=== PATIENT | female | born 1985 | race Caucasian/White ===

== ENCOUNTER 2021-09-15 15:27 | Outpatient (CLI) | payer BC, SELFPAY ==
[2021-09-15 22:04] LABS: Free T4 Free Thyroxine* 1.24 ng/dL (0.70-1.85)
== END 2021-09-15 15:28 | disposition home or self-care (01) ==
PROVIDERS: PCP Physician Assistant Medical; Visit Provider Physician Assistant Medical
DX: E07.9 Disorder of thyroid, unspecified (principal); I10 Essential (primary) hypertension; E83.52 Hypercalcemia
CPT/HCPCS: 84439; 84443

== ENCOUNTER 2021-10-29 21:00 | Outpatient (CLI) | payer BC, SELFPAY ==
--- NOTE | 2021-11-23 10:34 | W.PM.SLEEP ---
Sleep Study Details Details Interpreting Provider: Tl Madrigal MD Date of Sleep Study: 10/29/21 Sleep Study Details: STUDY TYPE:? 10/29/2021 ? BMI:? Not recorded ORDERING PROVIDER:Gary Garcia INDICATION:? Concerns about sleep apnea ? SLEEP SUMMARY:? Monitor time 488 minutes RESPIRATORY SUMMARY:? AHI 11.3, supine AHI 26.8, left lateral AHI 5.6, right lateral HI 3.7 Low oxygen 86 0.2% of study less than 90% oxygen saturation Snoring 0.3% PERIODIC LIMB MOVEMENTS OF SLEEP:? Not recorded CARDIAC:? Range [id number], mean 61.6 IMPRESSION:? Mild obstructive sleep apnea with significant supine position dependency RECOMMENDATION: AutoSet CPAP, dental appliance and/or airway expansion surgery are all potential treatment options. CPAP or dental appliance is favored.
== END 2021-10-29 21:01 | disposition home or self-care (01) ==
PROVIDERS: PCP Physician Assistant Medical; Visit Provider Otolaryngology
DX: G47.33 Obstructive sleep apnea (adult) (pediatric) (principal)
CPT/HCPCS: 95806

== ENCOUNTER 2021-12-21 09:41 | Outpatient (CLI) | payer BC, SELFPAY | END 2021-12-21 09:42 | disposition home or self-care (01) | PROVIDERS: PCP Physician Assistant Medical; Visit Provider Physician Assistant Medical | DX: E07.9 Disorder of thyroid, unspecified (principal) | CPT/HCPCS: 84443 ==

== ENCOUNTER 2022-04-11 15:07 | Outpatient (CLI) | payer BC, SELFPAY ==
[2022-04-11 22:17] LABS: Iron* 60 ug/dL (37-170)
[2022-04-11 22:43] LABS: TSH With Reflex to FT4* 0.605 uIU/mL (0.270-4.200)
[2022-04-15 07:04] LABS: Renin Activity 31.6 ng/mL/hr
== END 2022-04-11 15:08 | disposition home or self-care (01) ==
PROVIDERS: PCP Physician Assistant Medical; Visit Provider Physician Assistant Medical
DX: R53.83 Other fatigue (principal); I10 Essential (primary) hypertension; E83.52 Hypercalcemia
CPT/HCPCS: 82088; 83540; 84244; 84443

== ENCOUNTER 2022-05-20 07:11 | Outpatient (CLI) | payer BC, SELFPAY ==
--- NOTE | 2022-05-20 07:15 | CRLHL7_ITS ---
For Patients: As a result of the Century Cures Act, medical imaging exams and procedure reports are released immediately into your electronic medical record. You may view this report before your referring provider. If you have questions, please contact your health care provider. INDICATION: Hypertension TECHNIQUE: Grayscale, color Doppler and spectral Doppler ultrasound of the renal arteries. COMPARISON: None available FINDINGS: BILATERAL RENAL ARTERY DUPLEX ULTRASOUND ABDOMINAL AORTA: Peak systolic velocity = 146 cm/s. No aortic aneurysm. RIGHT KIDNEY: 9.8 cm in length. There is no hydronephrosis. Peak systolic velocity = 143 cm/second Renal artery to aortic peak systolic velocity ratio = 1.0 Resistive indices: 0.6 Renal vein = patent LEFT KIDNEY: 10.7 cm in length. There is no hydronephrosis. Peak systolic velocity = 188 cm/second at the distal left renal artery. Renal artery to aortic peak systolic velocity ratio = 1.3 Resistive indices: 0.5-0.6 Renal vein = patent IMPRESSION: Slightly elevated velocity involving the distal left renal artery measuring 188 cm/second. CTA or MRA is suggested for further evaluation. Dictated by Murray Ding MD @ 05/20/2022 11:21:39 AM (Electronically Signed)
== END 2022-05-20 07:12 | disposition home or self-care (01) ==
LOC: US 07:12
PROVIDERS: PCP Physician Assistant Medical; Visit Provider Physician Assistant Medical
DX: I10 Essential (primary) hypertension (principal)
CPT/HCPCS: 76775; 93975

== ENCOUNTER 2022-06-01 07:02 | Outpatient (CLI) | payer BC, SELFPAY ==
--- NOTE | 2022-06-01 07:15 | CRLHL7_ITS ---
For Patients: As a result of the Century Cures Act, medical imaging exams and procedure reports are released immediately into your electronic medical record. You may view this report before your referring provider. If you have questions, please contact your health care provider. Indication: Question of narrowing of the distal left renal artery on recent ultrasound. Technique: Abdominal MRI/MRA. Axial in/out phase, diffusion, ADC, T2 with without fat saturation, T1 precontrast and multiphase postcontrast. Dedicated contrast enhanced coronal MRA images of bilateral renal arteries. 40 milliliters Dotarem. Comparison: Renal ultrasound from 05/20/2022 Findings: Symmetric renal size. No hydronephrosis. No cortical thinning is noted bilaterally. Symmetric renal enhancement. No enhancing renal mass. 6 mm cyst in the interpolar region of the left kidney. No aortic aneurysm. Bilateral renal arteries are plated patent. No renal artery stenosis. No cirrhosis. No biliary dilation. No liver lesion. Patent hepatic vasculature. The splenomegaly. Spleen enhances normally. Pancreas and adrenal glands are unremarkable. Visualized bowel unremarkable. No aortic aneurysm. Visualized lung bases normal. Unremarkable bone marrow signal. No restricted diffusion. No abnormal T2 signal. Impression: 1. No evidence of renal artery stenosis. Dictated by Manuel Stout MD @ 06/02/2022 12:04:32 PM (Electronically Signed)
== END 2022-06-01 07:03 | disposition home or self-care (01) ==
LOC: MRI 07:03
PROVIDERS: PCP Physician Assistant Medical; Visit Provider Physician Assistant Medical
DX: R93.422 Abnormal radiologic findings on diagnostic imaging of left kidney (principal); I10 Essential (primary) hypertension
CPT/HCPCS: 74185; A9575

== ENCOUNTER 2022-06-20 15:53 | Outpatient (CLI) | payer BC, SELFPAY | END 2022-06-20 15:54 | disposition home or self-care (01) | PROVIDERS: PCP Physician Assistant Medical; Visit Provider Physician Assistant Medical | DX: I10 Essential (primary) hypertension (principal); R53.83 Other fatigue; E83.52 Hypercalcemia; R79.89 Other specified abnormal findings of blood chemistry | CPT/HCPCS: 82310; 83970; 84244; 87086 ==

== ENCOUNTER 2023-07-26 14:24 | Outpatient (CLI) | payer BC, SELFPAY | END 2023-07-26 14:25 | disposition home or self-care (01) | PROVIDERS: PCP Physician Assistant Medical; Visit Provider Physician Assistant Medical | DX: I10 Essential (primary) hypertension (principal); R53.83 Other fatigue; E83.52 Hypercalcemia; Z13.0 Encounter for screening for diseases of the blood and blood-forming organs and certain disorders involving the immune mechanism; Z13.6 Encounter for screening for cardiovascular disorders; Z11.59 Encounter for screening for other viral diseases; Z11.3 Encounter for screening for infections with a predominantly sexual mode of transmission | CPT/HCPCS: 80053; 80061; 83970; 84443; 86703; 86803 ==